=== PATIENT | female | born 1970 | race Caucasian/White ===

== ENCOUNTER 2021-03-24 11:37 | Emergency (ER) | payer OTHER ==
[~2021-03-24] VITALS: Ht 162.6 cm; Wt 54.4 kg
[2021-03-24 12:26] LABS: ABSOLUTE MONOCYTES 0.2 thou/uL (0.0-1.2); BASOPHILS 0.3 %; MONOCYTES 3.6 %; NUCLEATED RBCS 0 /100WBC
[2021-03-24 12:28] LABS: ABSOLUTE EOSINOPHILS 0.1 thou/uL (0.0-0.7); ABSOLUTE LYMPHOCYTES 1.7 thou/uL (0.8-5.3); HEMATOCRIT 32.9 % (37.0-47.0); HEMOGLOBIN 10.3 gm/dL (12.0-15.0); LYMPHOCYTES 28.7 %; MCH 19.2 pg (26.0-34.0); MCHC 31.3 g/dL (28.0-37.0); MCV 61.2 fL (80.0-100.0); MPV 10.2 fl. (7.2-11.1); PLATELET COUNT* 260 thou/uL (150-400); POLYS 66.4 %; RBC 5.37 mil/uL (4.20-5.00); RDW-CV 17.9 % (10.5-14.5)
[2021-03-24 12:47] LABS: CALCIUM 8.5 mg/dL (8.5-10.1); CREATININE 0.7 mg/dL (0.6-1.3); POTASSIUM 3.8 mmol/L (3.5-5.1)
[2021-03-24 12:52] LABS: ALBUMIN 3.5 g/dL (3.4-5.0); TOTAL BILIRUBIN 0.7 mg/dL (<0.1-1.0); TOTAL PROTEIN 7.4 g/dL (6.4-8.2)
[2021-03-24] MEDS ORDERED: NORFLEX100 MG PO (14:39)
[2021-03-24 14:46] VITALS: BP 137/60
== END 2021-03-24 14:46 | disposition home or self-care (01) ==
LOC: M.ERS 11:37
PROVIDERS: Physician Assistant
DX: R51.9 Headache, unspecified (principal)